=== PATIENT | female | born 1940 ===

== ENCOUNTER → 2016-12-21 | Outpatient (CLI) | payer OTHER, BC ==
[2016-12-21 13:48] LABS: ESTIMATED AVERAGE GLUCOSE 197 mg/dl; HA1C FLAG Normal (Normal)
[2016-12-21 13:59] LABS: ALT/SGPT 37 U/L (12-78); BLOOD UREA NITROGEN 29 mg/dl (7-18); CALCIUM 8.7 mg/dl (8.5-10.1); CARBON DIOXIDE 26 mmol/L (21-32); CHLORIDE 104 mmol/L (98-107); GLUCOSE 142 mg/dl (70-99); POTASSIUM 3.7 mmol/L (3.5-5.1); SODIUM 138 mmol/L (136-145)
[2016-12-21 14:09] LABS: CHOLESTEROL 156 mg/dl (0-200); CHOLESTEROL/HDL RATIO 3.2; HDL CHOLESTEROL 49 mg/dl; TRIGLYCERIDES 110 mg/dl (0-150); VERY LOW DENSITY LIPOPROT CALC 22 mg/dl
[2016-12-21 14:18] LABS: RATIO 17.3 mcg/mg (0-30.0)
== END | disposition home or self-care (01) ==
LOC: C.LABMFLN 07:57
PROVIDERS: ATTEND Family Medicine
DX: E03.9 Hypothyroidism, unspecified (principal); E11.9 Type 2 diabetes mellitus without complications; I10 Essential (primary) hypertension; E78.5 Hyperlipidemia, unspecified; M35.3 Polymyalgia rheumatica